=== PATIENT | male | born 1980 | race Caucasian/White ===

== ENCOUNTER 2024-11-15 | Emergency (ER) | payer BC, SELFPAY ==
[2024-11-15 00:08] VITALS: BP 168/119; PULSE 104; RESP 17; TEMP 36.7; O2SAT 96; BMI 32.3
--- NOTE | 2024-11-15 00:36 | XRR_ITS ---
PROCEDURE INFORMATION: Exam: XR Chest Exam date and time: 11/15/2024 12:43 AM Age: 44 years old Clinical indication: Shortness of breath; C/O SOB TECHNIQUE: Imaging protocol: Radiologic exam of the chest. Views: 1 view. COMPARISON: No relevant prior studies available. FINDINGS: Lungs: Low lung volumes. Bibasilar atelectasis. No consolidation. Pleural spaces: Unremarkable. Heart/Mediastinum: Nonenlarged heart. Bones/joints: No acute fracture. XR/XR chest 1V portable 19005 IMPRESSION: Low lung volumes.
--- NOTE | 2024-11-15 00:37 | W.ED.URI ---
HPI - URI/Sore Throat General: Chief Complaint: Upper Respiratory Infection Stated Complaint: Cant breath lots of mucus Time Seen by Provider: 11/15/24 00:25 History of Present Illness: 44-year-old male who says he has been sick for 5 days or so. Increasing amounts of mucus, leaking down into his throat. He is having trouble breathing at night, which he believes is because of this. He has not had fever. He has been using a Harrod pot and decongestions, with some relief. Last night, he had increased amounts of mucus, with choking sensation, and shortness of breath which is what brought him to the ER. Related Data Previous Rx's ?Medication ?Instructions ?Recorded doxycycline hyclate 100 mg tablet 100 mg PO BID 7 days #14 tabs 11/15/24 methylprednisolone 4 mg tablets in See Rx Instructions PO .COMPLEX 11/15/24 a dose pack (Medrol (Cristo)) #21 ea Allergies Allergy/AdvReac Type Severity Reaction Status Date / Time No Known Allergies Allergy Verified 11/15/24 00:13 Physical Exam Const: COMMON NORMALS: no acute distress GENERAL APPEARANCE: cooperative; not ill appearing and not frail appearing HENMT: COMMON NORMALS: normocephalic, atraumatic and Normal external nose present HEAD & SCALP: normocephalic and atraumatic FACE & SINUS: normal facial exam and face symmetric NOSE: Normal external nose present and Abnormal mucous membranes and turbinates present boggy and erythematous Eye: COMMON NORMALS: Equal, round and reactive pupils present and EOMs intact bilaterally PUPIL: Yes Equal, round and reactive pupils present Neck/C-Spine: GENERAL: Yes trachea midline Chest: CHEST: Yes Symmetrical chest wall rise Resp: COMMON NORMALS: normal respiratory effort, No retractions, No use of accessory muscles and clear to auscultation bilaterally AUSCULTATION: clear to auscultation bilaterally Cardio: COMMON NORMALS: regular rate and regular rhythm RATE: regular rate RHYTHM: regular rhythm GI: COMMON NORMALS: Normal to inspection, nondistended, normoactive bowel sounds present Extremity: COMMON NORMALS: no pedal edema Neuro: RICHARD COMA SCALE: document GCS findings [place] coma scale eye opening: Spontaneous Richard coma scale verbal response: Orientated [place] coma scale motor response: Obey commands Larimore coma scale total score: 15 SENSORY EXAM: Yes extremities (intact) Psych: COMMON NORMALS: speech normal SPEECH: Yes normal speech Skin: COMMON NORMALS: no rashes or lesions noted GENERAL SKIN EXAM: no rashes or lesions noted Course Vital Signs: Vital signs: Vital Signs Temperature 98.1 F 11/15/24 00:08 Pulse Rate 109 H 11/15/24 01:03 Respiratory Rate 16 11/15/24 01:03 Blood Pressure 147/99 11/15/24 01:03 Pulse Oximetry 94 11/15/24 01:03 Oxygen Delivery Me thod Room Air 11/15/24 01:03 MDM - URI/Sore Throat Medical Decision Making The patient is RSV positive. He is given a liter of fluid here. Chest x-ray is negative for infiltrate. Laboratories otherwise not remarkable. He is feeling improved. He has had symptoms for several days. He be placed on doxycycline and methylprednisolone for sinusitis. Natural history of his illness was explained to him. He understands and return for worsening symptoms despite treatment. Lab Data 11/15/24 00:48 11/15/24 00:48 Radiology Impressions Chest X-Ray 11/15/24 00:36 IMPRESSION: Low lung volumes. Laboratory Results WBC 8.08 10^3/uL (3.29-11.43) 11/15/24 00:48 RBC 5.86 10^6/uL (3.85-5.65) H 11/15/24 00:48 Hgb 17.20 g/dL (11.27-16.99) H 11/15/24 00:48 Hct 49.7 % (37-53) 11/15/24 00:48 MCV 84.8 fl (82-101) 11/15/24 00:48 MCH 29.4 pg (27-33) 11/15/24 00:48 MCHC 34.6 g/dL (30-55) 11/15/24 00:48 RDW 11.9 % (12.1-15.1) L 11/15/24 00:48 Plt Count 234 10^3/cmm (157-399) 11/15/24 00:48 MPV 9.8 fL (7.4-10.4) 11/15/24 00:48 Neut % (Auto) 74.4 % 11/15/24 00:48 Lymph % (Auto) 15.7 % 11/15/24 00:48 [place] % (Auto) 7.8 % 11/15/24 00:48 Eos % (Auto) 1.4 % 11/15/24 00:48 Baso % (Auto) 0.5 % 11/15/24 00:48 Neut # (Auto) 6.01 10^3/uL (1.8-7.7) 11/15/24 00:48 Lymph # (Auto) 1.3 10^3/uL (0.8-4.8) 11/15/24 00:48 [place] # (Auto) 0.6 10^3/uL (0.2-0.9) 11/15/24 00:48 Eos # (Auto) 0.1 10^3/uL (0.0-0.8) 11/15/24 00:48 Baso # (Auto) 0.0 10^3/uL (0.0-0.1) 11/15/24 00:48 Nucleated RBC % (auto) 0 % 11/15/24 00:48 Nucleated RBCs # 0.0 /100WBC 11/15/24 00:48 Sodium 137 mmol/L (136-145) 11/15/24 00:48 Potassium 4.5 mmol/L (3.5-5.1) 11/15/24 00:48 Chloride 98 mmol/L (98-107) 11/15/24 00:48 Carbon Dioxide 26 mmol/L (22-29) 11/15/24 00:48 Anion Gap 17.5 (5-19) 11/15/24 00:48 BUN 14 mg/dL (6-20) 11/15/24 00:48 Creatinine 1.0 mg/dL (0.7-1.2) 11/15/24 00:48 GFR Calculation 81.2 mL/min (90-130) L 11/15/24 00:48 Glucose 140 mg/dL (65-115) H 11/15/24 00:48 Calculated Osmolality 287 mOsm/kg (285-295) 11/15/24 00:48 Calcium 10.2 mg/dL (8.5-10.5) 11/15/24 00:48 Total Bilirubin 0.7 mg/dL (0.15-1.2) 11/15/24 00:48 AST 21 U/L (0-40) 11/15/24 00:48 ALT 29 U/L (0-41) 11/15/24 00:48 Alkaline Phosphatase 99 U/L (40-130) 11/15/24 00:48 Troponin T Baseline < 6 ng/L (0-15) 11/15/24 00:48 Total Protein 7.7 g/dL (6.6-8.7) 11/15/24 00:48 Albumin 4.8 g/dL (3.5-5.2) 11/15/24 00:48 Globulin 2.9 g/dL (1.3-4.6) 11/15/24 00:48 Urine Color Yellow (Yellow) 11/15/24 00:20 Urine Appearance Clear (CLEAR) 11/15/24 00:20 Urine pH 6.5 (5-7) 11/15/24 00:20 Ur Specific [place] 1.004 (1.005-1.030) L 11/15/24 00:20 Urine Protein Negative (Negative) 11/15/24 00:20 Urine Glucose (UA) Negative (Normal) 11/15/24 00:20 Urine Ketones Negative (Negative) 11/15/24 00:20 Urine Blood Negative (Negative) 11/15/24 00:20 Urine Nitrate Negative (Negative) 11/15/24 00:20 Urine Bilirubin Negative (Negative) 11/15/24 00: Urine Urobilinogen 0.2 mg/dL (Negative) 11/15/24 00:20 Ur Leukocyte Esterase Negative (Negative) 11/15/24 00:20 Urine RBC 0-2 /hpf (0-2) 11/15/24 00:20 Urine WBC 0-5 /hpf (0-5) 11/15/24 00:20 Ur Squamous Epith Cells 0-5 /hpf (0-5) 11/15/24 00:20 Amorphous Sediment Not Reportable 11/15/24 00:20 Urine Bacteria None seen /hpf (NONE) 11/15/24 00:20 Hyaline Casts 0-4 /lpf H 11/15/24 00:20 Influenza A (PCR) Negative (Negative) 11/15/24 00:22 Influenza Type B (PCR) Negative (Negative) 11/15/24 00: RSV (PCR) Positive (Negative) A 11/15/24 00:22 SARS-CoV-2 (PCR) Negative (Negative) 11/15/24 00:22 All radiology interpretation(s) finalized by discharge Discharge Plan Discharge Patient Disposition: Home Clinical Impression: Sinusitis, Respiratory syncytial virus (RSV) infection Condition: Stable Prescriptions: New methylprednisolone [Medrol (Cristo)] 4 mg tablets,dose pack See Rx Instructions .ROUTE .COMPLEX Qty: 21 0RF Rx Instructions: orally per package directions doxycycline hyclate 100 mg tablet 100 mg PO BID 7 Days Qty: 14 0RF Discharge Orders: Discharge ED (Routine); Ordered 11/15/24 Ordered By: Hugo Carmona Patient Instructions: Sinusitis (ED), Opioid Safety, Pain Management Activity Restrictions/Additional Instructions: Continue to drink plenty of clear liquids. Medication as directed. Return for worsening symptoms despite treatment. Print Language: Czech Coding Level of Care Code ED Melter Supervisor Oxygen Furnace for Loulou Vinson
[2024-11-15 00:55] LABS: Basophils % 0.5 %; Eosinophils # 0.1 10^3/uL (0.0-0.8); Eosinophils % 1.4 %; Hematocrit 49.7 % (37-53); Lymphocytes # 1.3 10^3/uL (0.8-4.8); Lymphocytes % 15.7 %; Mean Corpuscular HGB Conc 34.6 g/dL (30-55); Mean Corpuscular Hemoglobin 29.4 pg (27-33); Mean Corpuscular Volume 84.8 fl (82-101); Mean Platelet Volume 9.8 fL (7.4-10.4); Monocytes # 0.6 10^3/uL (0.2-0.9); Monocytes % 7.8 %; Neutrophils # 6.01 10^3/uL (1.8-7.7); Neutrophils % 74.4 %; Nucleated Red Blood Cells % 0 %; Platelet Count 234 10^3/cmm (157-399); Red Blood Count 5.86 10^6/uL (3.85-5.65); Red Cell Distribution Width 11.9 % (12.1-15.1); White Blood Count 8.08 10^3/uL (3.29-11.43)
[2024-11-15] MEDS: dexamethasone 10 mg/mL INJ IVP (00:59)
[2024-11-15] MEDS: sodium chloride 0.9% 1,000 ML 999 ML IV (00:59)
[2024-11-15 01:03] VITALS: BP 147/99; PULSE 109; RESP 16; O2SAT 94
[2024-11-15 01:04] LABS: Bilirubin Urine Negative (Negative); Blood Urine Negative (Negative); Glucose Urine UA Negative (Normal); Ketones Urine Negative (Negative); Leukocyte Esterase Urine Negative (Negative); Nitrate Urine Negative (Negative); Protein Urine Negative (Negative); Specific Gravity, Urine 1.004 (1.005-1.030); Urine Appearance Clear (CLEAR); Urine Color Yellow (Yellow); Urobilinogen Urine 0.2 mg/dL (Negative); pH Urine 6.5 (5-7)
[2024-11-15 01:07] LABS: Add Urine Microscopic? YES; Bacteria Urine None Seen /hpf; Hyaline Casts Urine 0-4 /lpf; RBC Urine 0-2 /hpf (0-2); Squamous Epithelial Cell Urine 0-5 /hpf (0-5); WBC Urine 0-5 /hpf (0-5)
[2024-11-15 01:11] LABS: Troponin(5th) Baseline < 6 ng/L (0-15)
[2024-11-15 01:13] LABS: Alanine Aminotransferase 29 U/L (0-41); Albumin Level 4.8 g/dL (3.5-5.2); Alkaline Phosphatase 99 U/L (40-130); Anion Gap 17.5 (5-19); Aspartate Amino Transferase 21 U/L (0-40); Blood Urea Nitrogen 14 mg/dL (6-20); Calcium 10.2 mg/dL (8.5-10.5); Carbon Dioxide 26 mmol/L (22-29); Chloride 98 mmol/L (98-107); Creatinine Clr Calc Pharmacy 112.8309; Globulin 2.9 g/dL (1.3-4.6); Glomerular Filtration Rate 81.2 mL/min (90-130); Glucose 140 mg/dL (65-115); Osmolality Calculated 287 mOsm/kg (285-295); Potassium 4.5 mmol/L (3.5-5.1); Sodium 137 mmol/L (136-145); Total Bilirubin 0.7 mg/dL (0.15-1.2); Total Protein 7.7 g/dL (6.6-8.7)
[2024-11-15 01:59] LABS: Influenza A NEGATIVE (Negative); Influenza B NEGATIVE (Negative); SARS-CoV-2 PCR NEGATIVE (Negative)
[2024-11-15 02:28] LABS: Respiratory Syncytial Virus Ce POSITIVE (Negative)
--- NOTE | 2024-11-15 02:36 | ECG_ITS ---
[facility] Date: 2024-[facility]-15 Pat Name: Shawn Chery Department: Room: Gender: Male Septic Cleaner: : 1980 Requested By: Hugo Vegas Order Number: [id number] Reading MD: ELLY PAYTON Measurements Intervals [place] Rate: 97 P: 9 AR: 148 QRS: -31 QRSD: 104 T: 23 QT: 333 QTc: 425 Interpretive Statements SINUS RHYTHM LEFT AXIS DEVIATION [QRS AXIS < -30] No previous ECG available for comparison Electronically Signed On 11-15-2024 22:21:04 CDT by ELLY PAYTON [email or web address]
[2024-11-15] MEDS: doxycycline 100 mg Tablet PO (02:44)
== END 2024-11-15 02:49 | disposition home or self-care (01) ==
PROVIDERS: Emergency Provider Emergency Medicine
DX: J32.9 Chronic sinusitis, unspecified (principal); B33.8 Other specified viral diseases; Z11.52 Encounter for screening for COVID-19
CPT/HCPCS: 36415; 71045; 80053; 81001; 84484; 85025; 87637; 93005; 96361; 96374; 99285; J1100; J7030

== ENCOUNTER 2024-11-29 23:36 | Emergency (ER) | payer BC, SELFPAY ==
[2024-11-29 23:43] VITALS: BP 135/94; PULSE 80; RESP 18; TEMP 36.7; O2SAT 92; BMI 33.0
--- NOTE | 2024-11-30 00:11 | W.ED.GENADLT ---
HPI - General Adult General: Chief complaint: General Medical Stated complaint: Has not slept in 36 Hours Time Seen by Provider: 11/29/24 23:47 Source: patient and family Mode of arrival: ambulatory Limitations: no limitations History of Present Illness: Patient is a 44-year-old male who presents to ED today along with his significant other for concerns of insomnia. Patient states he was seen here at our facility on 11/15 and diagnosed with RSV. He states during that time he was having copious amounts of nasal secretions and postnasal drainage causing him to have a choking like sensation when he would lie flat. Patient states he was placed on steroids. He states since that visit he has had difficulty sleeping reporting that his anxiety gets out of control when he lays down. Patient states prior to this, he has never had any issues with sleep. When he was on the steroids he was noticing significantly elevated blood pressures. He was seen at the walk-in clinic and was still having elevated blood pressures even once he finished with the steroids so he now is on a low-dose of lisinopril and this does seem to be helping with his blood pressure. Upon arrival pressure is 135/94. He has been done with the steroids for about a week now. He states when he lays down he gets very anxious shakes, palpitations, and just cannot shut his mind off. He states he has now been up for 36 hours. He states during the day he seems to be completely asymptomatic. He has not had any abnormal behaviors such as elevated mood/energy/poor impulsivity or concerning manic like behaviors. No history of psychiatric illness. Patient has tried 50mg of Vistaril, 50mg of Benadryl, and Melatonin to help with sleep all without relief. He does have an appointment with his primary care provider Dr. Nolasco next week. Onset (ago): week(s) (2 weeks) Severity: severe Associated symptoms: Deny chest pain, dyspnea, headache(s) or malaise Treatments prior to arrival: none Related Data Previous Rx's ?Medication ?Instructions ?Recorded zolpidem 5 mg tablet 5 mg PO .qhs #10 tabs 11/30/24 Allergies Allergy/AdvReac Type Severity Reaction Status Date / Time No Known Allergies Allergy Verified 11/29/24 23:48 Review of Systems Const: Denies: fever(s), chills, body aches, fatigue or malaise ENMT: Denies: throat pain, odynophagia, nasal discharge, nasal congestion or sinus pain Card: Denies: chest pain Resp: Denies: dyspnea Musc: Denies: neck pain Neuro: Denies: headache(s) Psych: Denies: anxiety, depression, mood swings, change in appetite, irritability, paranoia, difficulty concentrating, visual hallucinations, auditory hallucinations, suicidal ideation or homicidal ideation Physical Exam Const: COMMON NORMALS: no acute distress, average body habitus, patient oriented x3, no limitations, healthy appearing, alert and well nourished Resp: COMMON NORMALS: normal respiratory effort and clear to auscultation bilaterally AUSCULTATION: clear to auscultation bilaterally Cardio: COMMON NORMALS: regular rate and regular rhythm RATE: regular rate RHYTHM: regular rhythm Extremity: GENERAL: Yes normal exam except as noted Neuro: RICHARD COMA SCALE: document GCS findings [place] coma scale eye opening: Spontaneous [place] coma scale verbal response: Orientated [place] coma scale motor response: Obey commands Richard coma scale total score: 15 COMMON NORMALS: patient oriented x3, moves all extremities, no focal motor deficits, no sensory deficits noted and gait normal SENSORIUM/ORIENTATION: Yes alert Psych: COMMON NORMALS: mental status grossly normal, Normal thought process present, cooperative, normal affect, speech normal, activity/motor behavior normal, denies hallucinations, denies homicidal ideation and denies suicidal ideation APPEARANCE: Yes grossly normal ATTITUDE: Yes calm ACTIVITY/MOTOR BEHAVIOR: Yes appropriate eye contact SPEECH: Yes normal speech MOOD & AFFECT: Yes euthymic mood THOUGHT PROCESS: Normal thought process present THOUGHT CONTENT: Yes Normal thought content present ATTENTION/CONCENTRATION: Yes attention grossly intact and Yes concentration grossly intact MEMORY/COGNITION: Yes memory grossly intact and Yes cognition grossly intact INSIGHT: Good insight present (Psych) JUDGEMENT: Good judgement present (Psych) Course Vital Signs: Vital signs: Vital Signs Temperature 98.1 F 11/29/24 23:43 Pulse Rate 80 11/29/24 23:43 Respiratory Rate 18 11/29/24 23:43 Blood Pressure 135/94 11/29/24 23:43 Pulse Oximetry 92 11/29/24 23:43 Oxygen Delivery Me thod Room Air 11/29/24 23:43 [facility] - General Adult Medical Decision Making Up-To-Date algorithm for isolated sleep onset insomnia would be for a benzodiazepine receptor agonist such as Zolpidem. I think this is reasonable to try short term until he sees Dr. oNlasco next week. Return precautions given. Medical Records I reviewed the patient's medical records. No radiology studies performed this visit Discharge Plan Discharge Patient Disposition: Home Clinical Impression: Acute insomnia Condition: Stable Prescriptions: New zolpidem 5 mg tablet 5 mg PO .qhs Qty: 10 0RF Rx Instructions: Can take 1-1.5 tabs at bedtime. Allow for >7 hours before planned awakening Discontinued methylprednisolone [Medrol (Cristo)] 4 mg tablets,dose pack See Rx Instructions .ROUTE .COMPLEX Qty: 21 0RF Rx Instructions: orally per package directions Discharge Orders: Discharge ED (Routine); Ordered 11/30/24 Ordered By: Chloe Read Referrals: Shawn Nolasco MD [Primary Care Provider] - Patient Instructions: Insomnia (ED) Activity Restrictions/Additional Instructions: Please follow-up with Dr. Nolasco next week as scheduled. Print Language: Maori Coding Level of Care Code ED Eap Counselor for Loulou Vinson
[2024-11-30] MEDS: zolpidem 5 mg Tablet 10 MG PO (00:23)
[2024-11-30 00:29] VITALS: BP 145/90; PULSE 88; O2SAT 94
== END 2024-11-30 00:30 | disposition home or self-care (01) ==
PROVIDERS: Emergency Provider Physician Assistant; PCP Family Medicine
DX: G47.09 Other insomnia (principal)
CPT/HCPCS: 99283; J9999